=== PATIENT | female | born 1970 | race Caucasian/White ===

== ENCOUNTER → 2018-06-18 07:56 | Outpatient (CLI) | payer OTHER, SELFPAY ==
[2018-06-18 08:45] LABS: Add Manual Diff / Slide Review NO; Basophils Percent Auto 0.5 % (0-2); Eosinophils Percent Auto 1.6 % (2-4); Hematocrit 36.5 % (36-46); Hemoglobin 12.5 g/dL (12.0-16.0); Lymphocytes Percent Auto 32.3 % (25-40); Mean Corpuscular HGB Conc 34.2 % (30-36); Mean Corpuscular Hemoglobin 32.3 PG (26-34); Mean Corpuscular Volume 94.4 fL (80-100); Monocytes Percent Auto 7.9 % (3-14); Neutrophils Absolute Auto 3800 /uL (3000-5900); Neutrophils Percent Auto 57.7 % (50-75); Platelet Count 211 X10^3/uL (150-400); Red Blood Cell Count 3.87 X10^6/uL (4.0-5.2); Red Cell Distribution Width 12.6 % (11.6-14.8); White Blood Cell Count 6.6 X10^3/uL (4.5-11.0)
[2018-06-18 09:28] LABS: Cholesterol 198 mg/dL (140-199); Glucose 91 mg/dL (70-100); HDL Cholesterol 70 mg/dL (40-60); LDL Cholesterol Calculated 114 mg/dL (<100); Triglycerides 68 mg/dL (35-150)
== END ==
PROVIDERS: Visit Provider Family Medicine
DX: Z13.220 Encounter for screening for lipoid disorders (principal); Z86.2 Personal history of diseases of the blood and blood-forming organs and certain disorders involving the immune mechanism; Z13.1 Encounter for screening for diabetes mellitus; Z83.49 Family history of other endocrine, nutritional and metabolic diseases
CPT/HCPCS: 36415; 80061; 82947; 84443; 85025